=== PATIENT | male | born 2000 | race Caucasian/White ===

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

== ENCOUNTER 2022-03-28 20:34 | Emergency (ER) | payer MEDICAID ==
[~2022-03-28] VITALS: Ht 180.3 cm; Wt 90.9 kg
[~2022-03-28 20:34] MED LIST changes: -CEPH250T PO
--- NOTE | 2022-03-28 20:56 | NUR ---
DR ELIZABETH GAVE A VO FOR HEAD AND NECK CT
--- NOTE | 2022-03-28 21:23 | NUR ---
[facility] HAS BEEN CONTACTED AND THEY ARE INTERVIEWING PT. CASE NUMBER IS [id number]
[2022-03-28] MEDS ORDERED: normal saline 1000ML IV soln IVB ONE ×2 (22:25→22:30)
[2022-03-28] MEDS ORDERED: HYDROcodone/acetaminophen 10/325mg tab PO ONE (22:25)
[2022-03-28] MEDS ORDERED: ondansetron/PF 4mg/2ml inj IV ONE (22:30)
[2022-03-28] MEDS ORDERED: bacitracin 15gm ointment TP ONE (23:00)
[2022-03-29 00:15] VITALS: BP 112/61
== END 2022-03-29 00:16 | disposition home or self-care (01) ==
LOC: ER 20:34
DX: S13.4XXA Sprain of ligaments of cervical spine, initial encounter (principal); S09.90XA Unspecified injury of head, initial encounter; S08.0XXA Avulsion of scalp, initial encounter; F10.929 Alcohol use, unspecified with intoxication, unspecified; Y90.9 Presence of alcohol in blood, level not specified; J45.909 Unspecified asthma, uncomplicated; Z88.0 Allergy status to penicillin; V89.2XXA Person injured in unspecified motor-vehicle accident, traffic, initial encounter; Y93.89 Activity, other specified; Y92.89 Other specified places as the place of occurrence of the external cause; Y99.8 Other external cause status
CPT/HCPCS: 70450; 72125; 99285; J7030; L0172

== ENCOUNTER 2025-05-12 16:52 | Emergency (ER) | payer MEDICAID ==
[~2025-05-12] VITALS: Ht 177.8 cm; Wt 81.8 kg
[~2025-05-12 16:52] MED LIST changes: +ALBU6.7H14 INH; -ALBU6.7H9 INH; -IBUP-1985 PO; +IBUP600T52 PO
[2025-05-12 17:07] VITALS: BP 134/78; PULSE 80; RESP 16; TEMP 97.6; O2SAT 100
[2025-05-12] MEDS ORDERED: BUPR1FIL3 SL (17:28)
--- NOTE | 2025-05-12 17:29 | Physician Documentation ---
HPI ~ General Chief Complaint: Medication Request Stated Complaint: MED REQUEST Time Seen by MD: 17:14 Primary Medical Doctor: [facility] History of Present Illness HPI Comments This patient who is a 24-year-old male presents requesting a bridge prescription for Suboxone in order to abstain from street drugs and fentanyl Without Medications Since: May 12, 2025 Medication Reconciliation Allergies: Coded Allergies: Penicillins (Verified Allergy, Unknown, RASH, 05/12/25) Scheduled Albuterol Sulfate (Proventil Hfa), 2 PUFFS INH Q6H Buprenorphine Hcl/Naloxone Hcl (Suboxone 8 Mg-2 Mg Sl Film), 1 STRIP SL DAILY Ibuprofen (Ibuprofen), 1 TAB PO Q8H Lidocaine Hcl (Xylocaine Viscous), 5 ML PO Q2H PRN SORE THROAT Scheduled PRN Hydrocodone/Acetaminophen ([place] 5-325 Tablet), 1-2 TAB PO Q8HPRN PRN for pain Past Medical History Past Medical History: Asthma Past Surgical History: orthopedic surgeries Alcohol Use: None Drug Use: none Lives with: Mother Lives In: Home Occupation: student Review of Systems All Other Systems at this time: Reviewed and Negative ROS As stated above in the HPI, otherwise all systems are reviewed and negative. Physical Exam Physical Exam Vital Signs: Temperature: 97.6, Source: Temporal, Heart Rate: 80, Respiratory Rate: 16, BP: 134/78, Pulse Oximetry: 100, Weight: 81.820 Physical Exam General: Alert, no apparent distress. HEENT: PERRL, EOMI, no injection, moist mucous membranes. Neck: Full range of motion. Respiratory: Lungs clear, no respiratory distress. Chest: No accessory muscle use. Cardiovascular: Regular rate and rhythm, no murmurs. Gastrointestinal: Soft, nontender, nondistended. Bowels sounds present. Extremities: Normal range of motion, no deformity. Neurologic: Oriented x4. Psychiatric: Normal mood and affect. Skin: Normal color, warm and dry. No edema, no ecchymosis. Progress Results/Orders Results/Orders Completed Orders - MARIO ANDINO NP Buprenorphine/Naloxone Sl Film (Suboxone (05/12/25 17:20) Medications Received in ER Medications (Trade) Dose Ordered Sig/Pj Route PRN Reason Start Time Stop Time Status Last Admin Dose Admin (Suboxone 8MG-2MG SL film) 1 film ONCE ONCE SL 05/12/25 17:20 05/12/25 17:22 DC 05/12/25 17:43 1 FILM Vital Signs 05/12/25 17:07 Temp 97.6 Pulse 80 Resp 16 B/P (MAP) 134/78 Pulse Ox 100 Medical Decision Making Findings meds refilled as requested Differential Dx:Considerations: Include: Adverse circumstances, Economic, Psychosocial, Medical services unavail., Medication refill, Medication non- compliance, Other Departure Disposition: HOME / SELF CARE / HOMELESS Impression: Primary Impression: Acute opioid withdrawal Condition: Stable Discharge Instructions: Medicine Refill at the Emergency Department Referrals: NO PRIMARY CARE PROVIDER (PCP) Prescriptions Buprenorphine Hcl/Naloxone Hcl (Suboxone 8 Mg-2 Mg Sl Film) 8 Mg-2 Mg Film 1 STRIP SL DAILY for 7 Days, #7 STRIP Prov: MARIO ANDINO NP 05/12/25 Education Educated: Patient Educated regarding: diagnosis Signature Scribe Signature: f Attestation: Scribed for Mario Andino Recreation Establishment Manager by Mario Andino - RENE . 05/12/25 23:35 MARIO ANDINO NP May 12, 2025 17:29
[2025-05-12] MEDS: buprenorphine/naloxone 8MG-2MG SUBlingual film SL ONE (17:43)
== END 2025-05-12 17:50 | disposition home or self-care (01) ==
LOC: ER 16:52
DX: F11.23 Opioid dependence with withdrawal (principal); J45.909 Unspecified asthma, uncomplicated; Z88.0 Allergy status to penicillin; Z79.899 Other long term (current) drug therapy; Z98.890 Other specified postprocedural states
CPT/HCPCS: 99283